=== PATIENT | male | born 1970 | race Caucasian/White ===

== ENCOUNTER 2022-05-29 14:36 | Emergency (ER) | payer SELFPAY ==
[~2022-05-29] VITALS: Ht 170.2 cm; Wt 118.6 kg
[2022-05-29] MEDS ORDERED: IBUPROFEN 600 MG TABLET PO ONE (18:30)
[2022-05-29 19:19] VITALS: BP 138/77
[2022-05-29] MEDS ORDERED: IBUP-1554 PO (20:02)
== END 2022-05-29 20:26 | disposition home or self-care (01) ==
LOC: EMS 14:39
DX: S70.11XA Contusion of right thigh, initial encounter (principal); S30.0XXA Contusion of lower back and pelvis, initial encounter; S20.312A Abrasion of left front wall of thorax, initial encounter; W11.XXXA Fall on and from ladder, initial encounter; Y93.89 Activity, other specified; Y92.89 Other specified places as the place of occurrence of the external cause; Y99.8 Other external cause status
CPT/HCPCS: 71045; 72100; 73502; 99284